=== PATIENT | male | born 1940 | race Caucasian/White ===

== ENCOUNTER 2019-12-08 07:10 | Outpatient (CLI) | payer MEDICARE, SELFPAY ==
[2019-12-08 07:48] LABS: Alanine Aminotransferase 22 U/L (4-50); Albumin Level 4.2 g/dL (3.5-5.1); Alkaline Phosphatase 77 U/L (38-126); Anion Gap 5 mmol/L (8-16); Aspartate Amino Transferase 25 U/L (17-59); Bilirubin,Total 0.7 mg/dL (0.2-1.3); Blood Urea Nitrogen 21 mg/dL (9-20); Calcium 8.7 mg/dL (8.4-10.2); Carbon Dioxide 30 mmol/L (22-30); Chloride 104 mmol/L (98-107); Estimated Glomerular Filt Rate > 60; Glucose 100 mg/dL (75-110); Potassium 3.4 mmol/L (3.4-5.0); Sodium 139 mmol/L (137-145)
== END 2019-12-08 07:11 | disposition home or self-care (01) ==
PROVIDERS: PCP Emergency Medicine; Visit Provider Emergency Medicine
DX: E78.5 Hyperlipidemia, unspecified (principal)
CPT/HCPCS: 36415; 80053

== ENCOUNTER 2020-04-19 07:41 | Outpatient (CLI) | payer MEDICARE, SELFPAY ==
[2020-04-19 09:10] LABS: Alanine Aminotransferase 17 U/L (4-50); Albumin Level 3.9 g/dL (3.5-5.1); Alkaline Phosphatase 78 U/L (38-126); Anion Gap 4 mmol/L (8-16); Aspartate Amino Transferase 25 U/L (17-59); Bilirubin,Total 0.7 mg/dL (0.2-1.3); Blood Urea Nitrogen 23 mg/dL (9-20); Calcium 8.9 mg/dL (8.4-10.2); Carbon Dioxide 35 mmol/L (22-30); Chloride 102 mmol/L (98-107); Estimated Glomerular Filt Rate 58; Glucose 99 mg/dL (75-110); Potassium 3.4 mmol/L (3.4-5.0); Sodium 141 mmol/L (137-145)
== END 2020-04-19 07:42 | disposition home or self-care (01) ==
PROVIDERS: PCP Emergency Medicine; Visit Provider Emergency Medicine
DX: E78.5 Hyperlipidemia, unspecified (principal)
CPT/HCPCS: 36415; 80053

== ENCOUNTER 2020-08-25 07:25 | Outpatient (CLI) | payer MEDICARE, SELFPAY ==
[2020-08-25 08:18] LABS: Alanine Aminotransferase 19 U/L (4-50); Alkaline Phosphatase 75 U/L (38-126); Anion Gap 5 mmol/L (8-16); Aspartate Amino Transferase 25 U/L (17-59); Bilirubin,Total 0.7 mg/dL (0.2-1.3); Blood Urea Nitrogen 20 mg/dL (9-20); Calcium 8.5 mg/dL (8.4-10.2); Carbon Dioxide 32 mmol/L (22-30); Chloride 105 mmol/L (98-107); Estimated Glomerular Filt Rate 53; Glucose 98 mg/dL (75-110); Potassium 3.4 mmol/L (3.4-5.0); Sodium 142 mmol/L (137-145)
== END 2020-08-25 07:26 | disposition home or self-care (01) ==
PROVIDERS: PCP Emergency Medicine; Visit Provider Emergency Medicine
DX: E78.5 Hyperlipidemia, unspecified (principal)
CPT/HCPCS: 36415; 80053

== ENCOUNTER 2020-12-31 07:15 | Outpatient (CLI) | payer MEDICARE, SELFPAY ==
[2020-12-31 07:56] LABS: Alanine Aminotransferase 22 U/L (4-50); Albumin Level 4.3 g/dL (3.5-5.1); Alkaline Phosphatase 80 U/L (38-126); Anion Gap 7 mmol/L (8-16); Aspartate Amino Transferase 26 U/L (17-59); Bilirubin,Total 0.7 mg/dL (0.2-1.3); Blood Urea Nitrogen 24 mg/dL (9-20); Carbon Dioxide 31 mmol/L (22-30); Chloride 103 mmol/L (98-107); Estimated Glomerular Filt Rate 58; Glucose 102 mg/dL (65-110); Potassium 3.6 mmol/L (3.4-5.0); Sodium 141 mmol/L (137-145)
== END 2020-12-31 07:16 | disposition home or self-care (01) ==
LOC: ANHLAB 07:18
PROVIDERS: PCP Emergency Medicine; Visit Provider Emergency Medicine
DX: I10 Essential (primary) hypertension (principal)
CPT/HCPCS: 36415; 80053

== ENCOUNTER 2021-05-04 07:50 | Outpatient (CLI) | payer MEDICARE, SELFPAY ==
[2021-05-04 12:56] LABS: Alanine Aminotransferase 28 U/L (4-50); Albumin Level 4.3 g/dL (3.5-5.1); Alkaline Phosphatase 90 U/L (38-126); Anion Gap 8 mmol/L (8-16); Aspartate Amino Transferase 29 U/L (17-59); Bilirubin,Total 0.6 mg/dL (0.2-1.3); Blood Urea Nitrogen 24 mg/dL (9-20); Calcium 9.2 mg/dL (8.4-10.2); Carbon Dioxide 30 mmol/L (22-30); Chloride 102 mmol/L (98-107); Estimated Glomerular Filt Rate 49; Glucose 127 mg/dL (65-110); Sodium 140 mmol/L (137-145)
== END 2021-05-04 07:51 | disposition home or self-care (01) ==
PROVIDERS: PCP Emergency Medicine; Visit Provider Emergency Medicine
DX: I10 Essential (primary) hypertension (principal)
CPT/HCPCS: 36415; 80053

== ENCOUNTER 2021-09-07 07:07 | Outpatient (CLI) | payer MEDICARE, SELFPAY ==
[2021-09-07 08:34] LABS: Alanine Aminotransferase 18 U/L (6-50); Albumin Level 3.9 g/dL (3.5-5.1); Alkaline Phosphatase 82 U/L (38-126); Anion Gap 6 mmol/L (8-16); Aspartate Amino Transferase 26 U/L (17-59); Bilirubin,Total 0.8 mg/dL (0.2-1.3); Blood Urea Nitrogen 17 mg/dL (9-20); Calcium 8.6 mg/dL (8.4-10.2); Carbon Dioxide 30 mmol/L (22-30); Chloride 103 mmol/L (98-107); Estimated Glomerular Filt Rate > 60; Glucose 96 mg/dL (65-110); Potassium 3.2 mmol/L (3.4-5.0); Sodium 139 mmol/L (137-145)
== END 2021-09-07 07:08 | disposition home or self-care (01) ==
PROVIDERS: PCP Emergency Medicine; Visit Provider Emergency Medicine
DX: I10 Essential (primary) hypertension (principal)
CPT/HCPCS: 36415; 80053

== ENCOUNTER 2022-01-11 07:28 | Outpatient (CLI) | payer MEDICARE, SELFPAY ==
[2022-01-11 10:28] LABS: Alanine Aminotransferase 22 U/L (6-50); Alkaline Phosphatase 82 U/L (38-126); Anion Gap 9 mmol/L (8-16); Aspartate Amino Transferase 26 U/L (17-59); Bilirubin,Total 0.7 mg/dL (0.2-1.3); Blood Urea Nitrogen 17 mg/dL (9-20); Calcium 8.8 mg/dL (8.4-10.2); Carbon Dioxide 30 mmol/L (22-30); Chloride 102 mmol/L (98-107); Estimated Glomerular Filt Rate 58; Glucose 99 mg/dL (65-110); Potassium 3.3 mmol/L (3.4-5.0); Sodium 141 mmol/L (137-145)
== END 2022-01-11 07:29 | disposition home or self-care (01) ==
LOC: ANHLAB 07:29
PROVIDERS: PCP Emergency Medicine; Visit Provider Emergency Medicine
DX: I10 Essential (primary) hypertension (principal)
CPT/HCPCS: 36415; 80053

== ENCOUNTER 2022-05-17 07:53 | Outpatient (CLI) | payer MEDICARE, SELFPAY ==
[2022-05-17 09:35] LABS: Alanine Aminotransferase 22 U/L (6-50); Alkaline Phosphatase 76 U/L (38-126); Anion Gap 5 mmol/L (8-16); Aspartate Amino Transferase 24 U/L (17-59); Bilirubin,Total 0.8 mg/dL (0.2-1.3); Blood Urea Nitrogen 17 mg/dL (9-20); Calcium 8.7 mg/dL (8.4-10.2); Carbon Dioxide 32 mmol/L (22-30); Chloride 103 mmol/L (98-107); Estimated Glomerular Filt Rate > 60; Glucose 91 mg/dL (65-110); Potassium 3.3 mmol/L (3.4-5.0); Sodium 140 mmol/L (137-145)
== END 2022-05-17 07:54 | disposition home or self-care (01) ==
PROVIDERS: PCP Emergency Medicine; Visit Provider Emergency Medicine
DX: I10 Essential (primary) hypertension (principal)
CPT/HCPCS: 36415; 80053

== ENCOUNTER 2022-09-20 07:12 | Outpatient (CLI) | payer MEDICARE, SELFPAY ==
[2022-09-20 08:57] LABS: Alanine Aminotransferase 23 U/L (6-50); Albumin Level 3.9 g/dL (3.5-5.1); Alkaline Phosphatase 73 U/L (38-126); Anion Gap 3 mmol/L (8-16); Aspartate Amino Transferase 27 U/L (17-59); Bilirubin,Total 0.8 mg/dL (0.2-1.3); Blood Urea Nitrogen 16 mg/dL (9-20); Calcium 9.2 mg/dL (8.4-10.2); Carbon Dioxide 35 mmol/L (22-30); Chloride 102 mmol/L (98-107); Estimated Glomerular Filt Rate 58; Glucose 103 mg/dL (65-110); Potassium 3.4 mmol/L (3.4-5.0); Sodium 140 mmol/L (137-145)
== END 2022-09-20 07:13 | disposition home or self-care (01) ==
PROVIDERS: PCP Emergency Medicine; Visit Provider Emergency Medicine
DX: I10 Essential (primary) hypertension (principal)
CPT/HCPCS: 36415; 80053

== ENCOUNTER 2023-01-04 10:10 | Outpatient (CLI) | payer MEDICARE, SELFPAY ==
--- NOTE | 2023-01-04 10:22 | EST_ITS ---
Patient Info Name: Marshall Paulino Age: 82 years : 1940 Gender: Male Ht: 68 in Wt: 185 lbs BSA: 2.03 m2 HR: 116 bpm BP: 151 / 76 mmHg Heart Rhythm: Sinus Rhythm Exam Date: 01/04/2023 10:45 AM Exam Location: [facility] Stress Patient Status: Outpatient Admit Date: 01/04/2023 Staff Ordering Physician: Sekou Liao MD Attending Provider: Sekou Liao MD Exercise Technologist: Petty Aguilar CT Exercise Physician: Dudley Knott DO Exam Type: CA stress test treadmill Study Info An exercise stress test was performed. Summary 1. 1. Negative Frank exercise stress test for ischemic ST changes by ECG criteria. 2. 2. Reduced functional capacity, achieving 6 METs of workload. 3. 3. Baseline hypertension. 4. 4. Appropriate HR response to exercise. 5. 5. Appropriate HR recovery at 1 minute post exercise. 6. 6. No imaging with stress testing. 7. 7. Patient informed of the above results. Protocol: Frank Stress ECG Details Stage: REST Duration (min): 1 min : 29 sec Speed (mph): 0.0 Grade (%): 0 HR (bpm): 65 SBP (mmHg): 151 DBP (mmHg): 76 METS: --- Stage: REST Duration (min): 7 min : 42 sec Speed (mph): 0.0 Grade (%): 0 HR (bpm): 73 SBP (mmHg): 151 DBP (mmHg): 76 METS: --- Stage: STAGE 1 Duration (min): 1 min : 0 sec Speed (mph): 1.7 Grade (%): 10 HR (bpm): 86 SBP (mmHg): 151 DBP (mmHg): 76 METS: --- Stage: STAGE 1 Duration (min): 2 min : 0 sec Speed (mph): 1.7 Grade (%): 10 HR (bpm): 95 SBP (mmHg): 151 DBP (mmHg): 76 METS: --- Stage: STAGE 1 Duration (min): 3 min : 0 sec Speed (mph): 1.7 Grade (%): 10 HR (bpm): 105 SBP (mmHg): 198 DBP (mmHg): 64 METS: --- Stage: STAGE 2 Duration (min): 0 min : 59 sec Speed (mph): 2.5 Grade (%): 12 HR (bpm): 117 SBP (mmHg): 198 DBP (mmHg): 64 METS: --- Stage: RECOVERY Duration (min): 1 min : 0 sec Speed (mph): 0.0 Grade (%): 0 HR (bpm): 120 SBP (mmHg): 198 DBP (mmHg): 64 METS: --- Stage: RECOVERY Duration (min): 2 min : 0 sec Speed (mph): 0.0 Grade (%): 0 HR (bpm): 114 SBP (mmHg): 198 DBP (mmHg): 64 METS: --- Stage: RECOVERY Duration (min): 3 min : 0 sec Speed (mph): 0.0 Grade (%): 0 HR (bpm): 108 SBP (mmHg): 205 DBP (mmHg): 70 METS: --- Stage: RECOVERY Duration (min): 3 min : 2 sec Speed (mph): 0.0 Grade (%): 0 HR (bpm): 115 SBP (mmHg): 205 DBP (mmHg): 70 METS: --- Rest HR: 73 bpm Peak HR: 138 bpm Rest Sys BP: 151 mmHg Peak Sys BP: 205 mmHg Max Pred HR: 137 bpm % Max Pred HR: 101 % Target HR: 116 bpm Max RPP: 28,290 bpm*mmHg Melvin Score: 0 Termination Reason: Reached target heart rate or workload Cardiac Symptoms: Shortness of breath Max ST Seg Deviation: -0.80 mm Total Time: 3 min : 59 sec Rest Jackson BP: 76 mmHg Peak Jackson BP: 70 mmHg Angina Score: None Total METS: 6.2 Resting ECG Sinus rhythm. Stress ECG No significant ST changes. Arrhythmias None. Frequent PAC's and couplets with exercise.
== END 2023-01-04 10:11 | disposition home or self-care (01) ==
PROVIDERS: PCP Emergency Medicine; Visit Provider Emergency Medicine
DX: R07.9 Chest pain, unspecified (principal)
CPT/HCPCS: 93017

== ENCOUNTER 2023-01-24 08:19 | Outpatient (CLI) | payer MEDICARE, SELFPAY ==
[2023-01-24 09:20] LABS: Alanine Aminotransferase 22 U/L (6-50); Albumin Level 4.1 g/dL (3.5-5.1); Alkaline Phosphatase 79 U/L (38-126); Anion Gap 4 mmol/L (8-16); Aspartate Amino Transferase 27 U/L (17-59); Bilirubin,Total 0.9 mg/dL (0.2-1.3); Blood Urea Nitrogen 17 mg/dL (9-20); Calcium 8.6 mg/dL (8.4-10.2); Carbon Dioxide 31 mmol/L (22-30); Chloride 103 mmol/L (98-107); Estimated Glomerular Filt Rate > 60; Glucose 95 mg/dL (65-110); Potassium 3.6 mmol/L (3.4-5.0); Sodium 138 mmol/L (137-145)
[2023-01-27 21:40] LABS: Vitamin D 1,25 (OH)2 Total 38 pg/mL (18-72); Vitamin D2 1,25 (OH)2 <8 pg/mL; Vitamin D3 1,25 (OH)2 38 pg/mL
== END 2023-01-24 08:20 | disposition home or self-care (01) ==
LOC: ANHLAB 08:21
PROVIDERS: PCP Emergency Medicine; Visit Provider Emergency Medicine
DX: E78.5 Hyperlipidemia, unspecified (principal); E55.9 Vitamin D deficiency, unspecified
CPT/HCPCS: 36415; 80053; 82652

== ENCOUNTER 2023-05-08 12:50 | Outpatient (CLI) | payer MEDICARE, SELFPAY ==
[2023-05-08 13:55] LABS: SARS-CoV-2 RNA PCR Negative (Negative)
== END 2023-05-08 12:51 | disposition home or self-care (01) ==
PROVIDERS: PCP Emergency Medicine; Visit Provider Emergency Medicine
DX: R05.3 Chronic cough (principal); Z20.822 Contact with and (suspected) exposure to COVID-19
CPT/HCPCS: 87635

== ENCOUNTER 2023-05-31 08:17 | Outpatient (CLI) | payer MEDICARE, SELFPAY ==
[2023-05-31 09:37] LABS: Alanine Aminotransferase 21 U/L (6-50); Albumin Level 3.8 g/dL (3.5-5.1); Alkaline Phosphatase 77 U/L (38-126); Anion Gap 4 mmol/L (8-16); Aspartate Amino Transferase 26 U/L (17-59); Bilirubin,Total 0.8 mg/dL (0.2-1.3); Blood Urea Nitrogen 19 mg/dL (9-20); Calcium 9.3 mg/dL (8.4-10.2); Carbon Dioxide 34 mmol/L (22-30); Chloride 104 mmol/L (98-107); Estimated Glomerular Filt Rate 58; Glucose 95 mg/dL (65-110); Potassium 3.4 mmol/L (3.4-5.0); Sodium 142 mmol/L (137-145)
[2023-05-31 10:02] LABS: Vitamin D 25 Hydroxy 31.4 ng/mL
== END 2023-05-31 08:18 | disposition home or self-care (01) ==
PROVIDERS: PCP Emergency Medicine; Visit Provider Emergency Medicine
DX: E55.9 Vitamin D deficiency, unspecified (principal); I10 Essential (primary) hypertension
CPT/HCPCS: 36415; 80053; 82306

== ENCOUNTER 2023-10-03 08:27 | Outpatient (CLI) | payer MEDICARE, SELFPAY ==
[2023-10-03 09:43] LABS: Alanine Aminotransferase 19 U/L (6-50); Alkaline Phosphatase 77 U/L (38-126); Anion Gap 3 mmol/L (4-12); Aspartate Amino Transferase 28 U/L (17-59); Blood Urea Nitrogen 19 mg/dL (9-20); Carbon Dioxide 31 mmol/L (22-30); Chloride 105 mmol/L (98-107); Estimated Glomerular Filt Rate 58; Glucose 100 mg/dL (65-110); Potassium 3.5 mmol/L (3.4-5.0); Sodium 139 mmol/L (137-145)
[2023-10-03 13:25] LABS: Vitamin D 25 Hydroxy 33.6 ng/mL
== END 2023-10-03 08:28 | disposition home or self-care (01) ==
LOC: ANHLAB 08:29
PROVIDERS: PCP Emergency Medicine; Visit Provider Emergency Medicine
DX: E55.9 Vitamin D deficiency, unspecified (principal); E78.5 Hyperlipidemia, unspecified
CPT/HCPCS: 36415; 80053; 82306

== ENCOUNTER 2024-02-06 08:41 | Outpatient (CLI) | payer MEDICARE, SELFPAY ==
[2024-02-06 09:13] LABS: Alanine Aminotransferase 19 U/L (6-50); Alkaline Phosphatase 79 U/L (38-126); Anion Gap 6 mmol/L (4-12); Aspartate Amino Transferase 24 U/L (17-59); Bilirubin,Total 1.1 mg/dL (0.2-1.3); Blood Urea Nitrogen 15 mg/dL (9-20); Calcium 8.8 mg/dL (8.4-10.2); Carbon Dioxide 33 mmol/L (22-30); Chloride 101 mmol/L (98-107); Estimated Glomerular Filt Rate 53; Glucose 100 mg/dL (65-110); Potassium 3.5 mmol/L (3.4-5.0); Sodium 140 mmol/L (137-145)
[2024-02-06 09:50] LABS: Vitamin D 25 Hydroxy 39.3 ng/mL
== END 2024-02-06 08:42 | disposition home or self-care (01) ==
LOC: ANHLAB 08:42
PROVIDERS: PCP Emergency Medicine; Visit Provider Emergency Medicine
DX: E55.9 Vitamin D deficiency, unspecified (principal); I10 Essential (primary) hypertension
CPT/HCPCS: 36415; 80053; 82306

== ENCOUNTER 2024-06-11 08:44 | Outpatient (CLI) | payer MEDICARE, SELFPAY ==
--- OUTSIDE RECORDS SUMMARY | 2024-06-11 08:53 | XMS_ITS | Clinical Summary ---
Author Organization [facility] Address [facility] [place] [address] Care Team Providers Care Cuffing Machine Operator Name Role Phone Sekou Liao MD Primary Care Provider [phone] Social History Tobacco Use Types Packs/Day Years Used Date Smoking Tobacco: Never Assessed Sex and Gender Information Value Date Recorded Sex Assigned at Not on file Legal Sex Male 4:59 PM CDT Gender Identity Not on file Sexual Orientation Not on file Plan of Treatment Health Maintenance Due Date Last Done Comments DTaP, Tdap and Td Vaccines ( 1 - Tdap) 1959 Zoster Vaccines (1 of 2) 1989 Pneumococcal Vaccine: 65+ Ye ars (1 of 1 - PCV) 2004 RSV Immunization or 60+ Years (1 - 1-dose 75+ series) 2014 COVID-19 Vaccine ( - 2023-2 5 season) 2023 Influenza Adult (#1) 2024 Meningococcal B Vaccine Aged Out No l onger eligible based on patient's age to complete this topic Meningococcal Vaccine Aged Out No jesi kiran eligible based on patient's age to complete this topic RSV Immunizations Under 20 Months Aged Out No longer eligible based on patient's age to complete this topic Care Teams Cuffing Machine Operator Relationship Specialty Start Date End Date Sekou Liao MD [address] [place], [place] [id number] PCP - General 02/15/15
--- OUTSIDE RECORDS SUMMARY | 2024-06-11 08:53 | XMS_ITS | Continuity of Care Document ---
Author Organization Ophthalmology [facility] Address [address] [facility] [address] [place] [address] Phone Care Team Providers Care Orthopedic Specialist Name Role Phone Jairo Casey MD Unavailable Unavailable Procedures Procedure Date AFTER CATARACT LASER SURGERY AFTER CATARACT LASER SURGERY EYE EXAM & TREATMENT CATARACT SURG W/IOL, 1 STAGE CATARACT SURG W/IOL, 1 STAGE OFFICE/OUTPATIENT VISIT, [facility] OPHTHALMIC BIOMETRY OPHTHALMIC BIOMETRY Advance Directives Directive Yes / No Effective Date File Name No Information Encounters Encounter Description Practice Location Reason(s) For Visit Diagnoses Date Provider Providers Copied on Encounter Ophthalmology [facility], [address] [place] [address], [address] [place] [address], tel:[phone] [place] No Information 8 Carmela Gill. [address] [place] [address], [address], [place], [address], [place]. tel:[phone] Referring Provider: Jairo Lucio, [address] [place] [address] [address], [place], [address]. tel:[phone] [facility], [address] [place] [address], [id number], tel:[phone] [facility] [place] No Information 8 Carmela Gill. [address] [facility], [address], [place], [address], [place]. tel:[phone] Referring Provider: Jairo Lucio, [address] [place] [address] [address], [place], [address]. tel:[phone] [facility], [address], [place], [place], [id number], [place] tel:[phone] [facility] [place] No Information 8 Carmela Gill. [address], [address], [place], [address], [place]. tel:[phone] Referring Provider: Jairo Lcuio, [address], [place], [address]. tel:[phone] [facility], [address], [place], [place], [id number], [place] tel:[phone] [facility] No Information 5 Carmela Gill. [address], [address], [place], [address], [place]. tel:[phone] Referring Provider: Jairo Lucio, [address], [place], [address]. tel:[phone] [facility], [address], [place], [place], [id number], [place] tel:[phone] [facility] No Information 5 Carmela Gill. [address], [address], [place], [address], [place]. tel:[phone] Referring Provider: Jairo Lucio, [address], [place], [address]. tel:[phone] OFFICE/OUTPA TIENT VISIT, [facility], [address], [place], [place], [address], [place] tel:[phone] [facility] [place] No Information 5 Carmela Gill. [address], [address], [place], [address], [place]. tel:[phone] Referring Provider: Jairo Lucio, [address], [place], [address]. tel:[phone] Family History Family Member Type Diagnosis Age At Onset No Information Payers Payer name Insurance type Covered republican ID Authoriza tion(s) Medicare Complete Advantage [facility] [id number] Social History Type Description Quantity Date Captured Comments Sex Male Smoking Status No Information Chief Complaint And Reason For Visit No Information Plan Of Treatment Date Type Action Status No Information History Of Present Illness Encounter Date Complaint History Of Prese nt Illness No Information Instructions Date Instruction Additional Infor mation No Information Assessments Type Assessment Date No Information
--- OUTSIDE RECORDS SUMMARY | 2024-06-11 08:53 | XMS_ITS | Clinical Summary ---
Author Organization [address] Address [address] [place] [address] Care Team Providers Care Edge Trimmer Name Role Phone Sekou Liao MD Primary Care Provide r Allergies No known active allergies Medications lisinopriL (PRINIVIL,ZESTRI L) 20 mg tablet Take 1 tablet (20 mg total) by mouth daily 11/23/2022 Active lhxazgvz32-iiqf- Lmfolate-algal 27 mg iron-1.13 mg-581.92 mg capsule Take by mouth Active calcium-vits B8-D-A7-minerals 166.75 mg- 166.75 unit capsule Take by mouth Active aspirin 81 mg enteric coated tablet Take 1 tablet (81 mg total) by mouth daily Active vit A/C/E ac/ZnOx/cupric oxide (EYE VITAMIN AND MINERALS ORAL) Take by mouth Active hydroCHLOROthiaz enrique (HYDRODIURIL) 25 mg tablet Take 1 tablet (25 mg total) by mouth daily Active Active Problems Problem Noted Date Diagnosed Date LVH (left ventricular hypertrophy) 05/28/2023 Primary hypertension 02/12/2023 Other chest pain 02/12/2023 Abnormal ECG 02/12/2023 Encounters Date Type Department Care Team Description 05/29/2024 9:30 AM MANAGER FRENCH Office Visit [facility] Cardiology [address] [place] [address] Caleb Esquivel MD Primary hypertension (Primary Dx); LVH (left ventricular hypertrophy) from Last 3 Months Medical History Medical History Date Comments Chest pain Hypertension Hyperlipidemia Renal cyst Family History Medical History Relation Name Comments Heart attack Father Heart disease Father Alzheimer's disease Mother Relation Name Status Comments Father Mother Social History Tobacco Use Types Packs/Day Years Used Date Smoking Tobacco: Never Tobacco Cessation:Counseling Given: Not Answered Sex and Gender Information Value Date Recorded Sex Assigned at Not on file Legal Sex Male 12:38 AM MANAGER FRENCH Gender Identity Not on file Sexual Orientation Not on file Obstetrics History Last Filed Vital Signs Vital Sign Reading Time Taken Comments Blood Pressure 128/66 05/29/2024 9:43 AM MANAGER FRENCH Pulse 72 05/29/2024 9:43 AM MANAGER FRENCH Temperature - - Respiratory Rate - - Oxygen Saturation 94% 05/29/2024 9:43 AM MANAGER FRENCH Inhaled Oxygen Concentration - - Weight 87.5 kg (193 lb) 05/29/2024 9:43 AM MANAGER FRENCH Height 172.7 cm (5' 8 ) 05/29/2024 9:43 AM MANAGER FRENCH Body Mass Index 29.35 05/29/2024 9:43 AM MANAGER FRENCH Plan of Treatment Health Maintenance Due Date Last Done Comments Depression Screening 1940 Fall Risk Assessment 1940 DTaP/Tdap/Td Vaccine (1 - Tdap) 1950 Hepatitis B Screening 1957 Pneumococcal vaccine 65+ (1 of 1 - PCV) 2004 Well Visit 65+ 2004 Zoster Vaccine (2 of 3) 03/24/2013 01/27/2013 Covid-19 Vaccine (6 2023-2 5 season) 2023 02/07/2023, 02/20/2022, 02/07/2021, Additional history exists Influenza Vaccine (#1) 2023 , 02/04/2022, 12/29/2020, Additional history exists Insurance [employer] Care Teams Edge Trimmer Relationship Specialty Start Date End Date Sekou Liao MD [address] [place] [address] PCP - General Emergency Medicine 12/24/22
--- OUTSIDE RECORDS SUMMARY | 2024-06-11 08:53 | XMS_ITS | Referral Summary ---
Author Organization [address] Address [address] [place] [address] Care Team Providers Care Driver License Reviewing Officer Name Role Phone Sekou Liao MD Primary Care Provide r Encounters Date Type Department Care Team Description 05/29/2024 9:30 AM LEGAL SUPPORT MANAGER Office Visit [facility] Medical Group Cardiology [address] [place] [address] Caleb Esquivel MD Primary hypertension (Primary Dx); LVH (left ventricular hypertrophy) from Last 3 Months Allergies No known active allergies Medications lisinopriL (PRINIVIL,ZESTRI L) 20 mg tablet Take 1 tablet (20 mg total) by mouth daily 11/23/2022 Active tahisihp29-xour- Lmfolate-algal 27 mg iron-1.13 mg-581.92 mg capsule Take by mouth Active calcium-vits R6-T-J1-minerals 166.75 mg- 166.75 unit capsule Take by [...] Other chest pain 02/12/2023 Abnormal ECG 02/12/2023 Social History Tobacco Use Types Packs/Day Years Used Date Smoking Tobacco: Never Tobacco Cessation:Counseling Given: Not Answered Sex and Gender Information Value Date Recorded Sex Assigned at Not on file Legal Sex Male 12:38 AM LEGAL SUPPORT MANAGER Gender Identity Not on file Sexual Orientation Not on file Last Filed Vital Signs Vital Sign Reading Time Taken Comments Blood Pressure 128/66 05/29/2024 9:43 AM LEGAL SUPPORT MANAGER Pulse 72 05/29/2024 9:43 AM LEGAL SUPPORT MANAGER Temperature - - Respiratory Rate - - Oxygen Saturation 94% 05/29/2024 9:43 AM LEGAL SUPPORT MANAGER Inhaled Oxygen Concentration - - Weight 87.5 kg (193 lb) 05/29/2024 9:43 AM LEGAL SUPPORT MANAGER Height 172.7 cm (5' 8 ) 05/29/2024 9:43 AM LEGAL SUPPORT MANAGER Body Mass Index 29.35 05/29/2024 9:43 AM LEGAL SUPPORT MANAGER Plan of Treatment Not on file Insurance [employer] Care Teams Driver License Reviewing Officer Relationship Specialty Start Date End Date Sekou Liao MD [address] [place] [address] PCP - General Emergency Medicine 12/24/22
[2024-06-11 09:38] LABS: Alanine Aminotransferase 29 U/L (6-50); Alkaline Phosphatase 87 U/L (38-126); Anion Gap 8 mmol/L (4-12); Aspartate Amino Transferase 27 U/L (17-59); Bilirubin,Total 0.8 mg/dL (0.2-1.3); Blood Urea Nitrogen 18 mg/dL (9-20); Carbon Dioxide 30 mmol/L (22-30); Chloride 102 mmol/L (98-107); Estimated Glomerular Filt Rate > 60; Glucose 97 mg/dL (65-110); Potassium 3.5 mmol/L (3.4-5.0); Sodium 140 mmol/L (137-145)
[2024-06-11 10:08] LABS: Vitamin D 25 Hydroxy 28.2 ng/mL
== END 2024-06-11 08:45 | disposition home or self-care (01) ==
LOC: ANHLAB 08:45
PROVIDERS: PCP Emergency Medicine; Visit Provider Emergency Medicine
DX: E55.9 Vitamin D deficiency, unspecified (principal); I10 Essential (primary) hypertension
CPT/HCPCS: 36415; 80053; 82306

== ENCOUNTER 2024-08-28 13:58 | Outpatient (CLI) | payer MEDICARE, SELFPAY ==
[2024-08-28 15:23] LABS: Influenza A QL RT-PCR Negative (Negative); Influenza B QL RT-PCR Negative (Negative); RSV RNA, RT-PCR Negative (Negative); SARS-CoV-2 RNA PCR Negative (Negative)
--- OUTSIDE RECORDS SUMMARY | 2024-08-29 14:13 | XMS_ITS | Referral Summary ---
Author Organization [address] Address [address] [place] [address] Care Team Providers Care Ocean Export Agent Name Role Phone Sekou Liao MD Primary Care Provide r Allergies No known active allergies Medications lisinopriL (PRINIVIL,ZESTRI L) 20 mg tablet Take 1 tablet (20 mg total) by mouth daily 11/23/2022 Active ryfzzbmc42-xnnn- Lmfolate-algal 27 mg iron-1.13 mg-581.92 mg capsule Take by mouth Active calcium-vits B5-H-V4-minerals 166.75 mg- 166.75 unit capsule Take by [...] on file Legal Sex Male 12:38 AM RECORDER OF DEEDS Gender Identity Not on file Sexual Orientation Not on file Last Filed Vital Signs Vital Sign Reading Time Taken Comments Blood Pressure 128/66 05/29/2024 9:43 AM RECORDER OF DEEDS Pulse 72 05/29/2024 9:43 AM RECORDER OF DEEDS Temperature - - Respiratory Rate - - Oxygen Saturation 94% 05/29/2024 9:43 AM RECORDER OF DEEDS Inhaled Oxygen Concentration - - Weight 87.5 kg (193 lb) 05/29/2024 9:43 AM RECORDER OF DEEDS Height 172.7 cm (5' 8 ) 05/29/2024 9:43 AM RECORDER OF DEEDS Body Mass Index 29.35 05/29/2024 9:43 AM RECORDER OF DEEDS Plan of Treatment Not on file Insurance [facility] MEDICARE [facility] Address: [address] [address] Care Teams Ocean Export Agent Relationship Specialty Start Date End Date Sekou Liao MD [address] [place] [address] PCP - General Emergency Medicine 12/24/22
--- OUTSIDE RECORDS SUMMARY | 2024-08-29 14:13 | XMS_ITS | Clinical Summary ---
Author Organization [facility] Address [facility] [place] [address] Care Team Providers Care Guide Changer Name Role Phone Sekou Liao MD Primary Care Provider [phone] Social History Tobacco Use Types Packs/Day Years Used Date Smoking Tobacco: Never Assessed Sex and Gender Information Value Date Recorded Sex Assigned at Not on file Legal Sex Male 4:59 PM CDT Gender Identity Not on file Sexual Orientation Not on file Plan of Treatment Health Maintenance Due Date Last Done Comments DTaP, Tdap and Td Vaccines ( 1 - Tdap) 1959 Pneumococcal Vaccine: 50+ Ye ars (1 of 1 - PCV) 1989 Zoster Vaccines (1 of 2) 1989 RSV Immunization or 60+ Years (1 - 1-dose 75+ series) 2014 COVID-19 Vaccine ( - 2023-2 5 season) 2023 Meningococcal B Vaccine Aged Out No l onger eligible based on patient's age to complete this topic Meningococcal Vaccine Aged Out No jesi kiran eligible based on patient's age to complete this topic RSV Immunizations Under 20 Months Aged Out No longer eligible based on patient's age to complete this topic Care Teams Guide Changer Relationship Specialty Start Date End Date Sekou Liao MD [address] [place] [address] PCP - General 02/15/15
--- OUTSIDE RECORDS SUMMARY | 2024-08-29 14:13 | XMS_ITS | Clinical Summary ---
Author Organization [address] Address [address] [place] [address] Care Team Providers Care Chef Assistant Name Role Phone Sekou Liao MD Primary Care Provide r Allergies No known active allergies Medications lisinopriL (PRINIVIL,ZESTRI L) 20 mg tablet Take 1 tablet (20 mg total) by mouth daily 11/23/2022 Active rsjnyjcc85-woah- Lmfolate-algal 27 mg iron-1.13 mg-581.92 mg capsule Take by mouth Active calcium-vits E1-D-X1-minerals 166.75 mg- 166.75 unit capsule Take by [...] Other chest pain 02/12/2023 Abnormal ECG 02/12/2023 Medical History Medical History Date Comments Chest [...] on file Legal Sex Male 12:38 AM SEX CRIMES DETECTIVE Gender Identity Not on file Sexual Orientation Not on file Obstetrics History Last Filed Vital Signs Vital Sign Reading Time Taken Comments Blood Pressure 128/66 05/29/2024 9:43 AM SEX CRIMES DETECTIVE Pulse 72 05/29/2024 9:43 AM SEX CRIMES DETECTIVE Temperature - - Respiratory Rate - - Oxygen Saturation 94% 05/29/2024 9:43 AM SEX CRIMES DETECTIVE Inhaled Oxygen Concentration - - Weight 87.5 kg (193 lb) 05/29/2024 9:43 AM SEX CRIMES DETECTIVE Height 172.7 cm (5' 8 ) 05/29/2024 9:43 AM SEX CRIMES DETECTIVE Body Mass Index 29.35 05/29/2024 9:43 AM SEX CRIMES DETECTIVE Plan of Treatment Health Maintenance Due Date Last Done Comments Depression Screening 1940 Fall Risk Assessment 1940 DTaP/Tdap/Td Vaccine (1 - Tdap) 1951 Hepatitis B Screening 1957 Pneumococcal vaccine 65+ (1 of 1 - PCV) 1989 Well Visit 65+ 2004 Zoster Vaccine (2 of 3) 03/24/2013 01/27/2013 Covid-19 Vaccine (6 - 2023-2 5 season) 2023 02/07/2023, 02/20/2022, 02/07/2021, Additional history exists Influenza Vaccine (#1) 2023 , 02/04/2022, 12/29/2020, Additional history exists Insurance [facility] MEDICARE [facility] MEDIC[facility] Address: [facility] [address] [place] [address] Care Teams Chef Assistant Relationship Specialty Start Date End Date Sekou Liao MD [address] [place] [address] PCP - General Emergency Medicine 12/24/22
--- OUTSIDE RECORDS SUMMARY | 2024-08-29 14:13 | XMS_ITS | Continuity of Care Document ---
Author Organization Ophthalmology [facility] Address [id number] [place] [address] [address] [place] [address] Phone Care Team Providers Care Solidworks Drafter Name Role Phone Jairo Casey MD Unavailable Unavailable Procedures Procedure Date AFTER CATARACT LASER SURGERY AFTER CATARACT LASER SURGERY EYE EXAM & TREATMENT CATARACT SURG W/IOL, 1 STAGE CATARACT SURG W/IOL, 1 STAGE OFFICE/OUTPATIENT VISIT, [facility] OPHTHALMIC BIOMETRY OPHTHALMIC BIOMETRY Advance Directives Directive Yes / No Effective Date File Name No Information Encounters Encounter Description Practice Location Reason(s) For Visit Diagnoses Date Provider Providers Copied on Encounter Ophthalmology [facility], [address] [place] [address], [place], [place], [id number], tel:[phone] [place] No Information 8 Carmelamain Gill. [address] [facility], [address], [place], [place], [address], [place]. tel:[phone] Referring Provider: Jairo Lucio, [address] [place] [address] [address], [place], [address]. tel:[phone] Ophthalmology [facility], [address] [place] [address] [address], [place], [place], [id number], tel:[phone] [facility] [place] No Information 8 Carmelamain Gill. [address] [facility], [address], [place], [place], [address], [place]. tel:[phone] Referring Provider: Jairo Lucio, [address] [place] [address] [address], [place], [address]. tel:[phone] [facility], [address] [facility] [address], [place], [place], [address], [place] tel:[phone] Oph Consult [facility] No Information 8 Carmela Gill. [address] [facility], [address], [place], [place], [address], [place]. tel:[phone] Referring Provider: Jairo Lucio, [address] [facility] [address], [place], [address]. tel:[phone] [facility], [address] [place], [place] [address] [address], [place], [place], [address], [place] tel:[phone] [facility] No Information 5 Carmela Gill. [address] [facility], [address], [place], [place], [address], [place]. tel:[phone] Referring Provider: Jairo Lucio, [address] [place] [address] [address], [place], [address]. tel:[phone] [facility], [address] [facility] [address], [place], [place], [address], [place] tel:[phone] 1169 [facility] No Information 5 Carmela Gill. [address] [facility], [address], [place], [place], [address], [place]. tel:[phone] Referring Provider: Jairo Lucio, [address] [place] [address] [address], [place], [address]. tel:[phone] OFFICE/OUTPA TIENT VISIT, [facility], [address] [facility] [address], [place], [place], [address], [place] tel:[phone] Oph Consult [facility] No Information 5 Carmela Gill. [address] [facility], [address], [place], [place], [address], [place]. tel:[phone] Referring Provider: Jairo Lucio [address] [facility] [address], [place], [address]. tel:[phone] Family History Family Member Type Diagnosis Age At Onset No Information Payers Payer name Insurance type Covered green party ID Authoriza tion(s) Medicare Complete Advantage [facility] [id number] Social History Type Description Quantity Date Captured Comments Sex Male Smoking Status No Information Chief Complaint And Reason For Visit No Information Reason For Referral Reason For Referral No Information History Of Present Illness Encounter Date Complaint History Of Prese nt Illness No Information Functional Status Date Functional Assessmen t No Information Instructions Date Instruction Additional Infor mation No Information Assessments Type Assessment Date No Information Patient Care Teams Name Effective Dates (start - stop) Status Members No Information
== END 2024-08-28 13:59 | disposition home or self-care (01) ==
LOC: ANHLAB 13:59
PROVIDERS: PCP Emergency Medicine; Visit Provider Emergency Medicine
DX: R05.3 Chronic cough (principal)
CPT/HCPCS: 87637

== ENCOUNTER 2024-10-07 08:38 | Outpatient (CLI) | payer MEDICARE, SELFPAY ==
--- OUTSIDE RECORDS SUMMARY | 2024-10-07 08:58 | XMS_ITS | Clinical Summary ---
Author Organization [address] Address [address] [place] [id number] Care Team Providers Care Bridge Design Engineer Name Role Phone Sekou Liao MD Primary Care Provide r Allergies No known active allergies Medications lisinopriL (PRINIVIL,ZESTRI L) 20 mg tablet Take 1 tablet (20 mg total) by mouth daily 11/23/2022 Active eyqelotp64-untk- Lmfolate-algal 27 mg iron-1.13 mg-581.92 mg capsule Take by mouth Active calcium-vits Q3-G-W3-minerals 166.75 mg- 166.75 unit capsule Take by [...] on file Legal Sex Male 12:38 AM RESHIPPING CLERK Gender Identity Not on file Sexual Orientation Not on file Obstetrics History Last Filed Vital Signs Vital Sign Reading Time Taken Comments Blood Pressure 128/66 05/29/2024 9:43 AM RESHIPPING CLERK Pulse 72 05/29/2024 9:43 AM RESHIPPING CLERK Temperature - - Respiratory Rate - - Oxygen Saturation 94% 05/29/2024 9:43 AM RESHIPPING CLERK Inhaled Oxygen Concentration - - Weight 87.5 kg (193 lb) 05/29/2024 9:43 AM RESHIPPING CLERK Height 172.7 cm (5' 8) 05/29/2024 9:43 AM RESHIPPING CLERK Body Mass Index 29.35 05/29/2024 9:43 AM RESHIPPING CLERK Plan of Treatment Health Maintenance Due Date Last Done Comments Depression Screening 1940 Fall Risk Assessment 1940 DTaP/Tdap/Td Vaccine (1 - Tdap) 1950 Hepatitis B Screening 1957 Pneumococcal vaccine 65+ (1 of 1 - PCV) 1989 Well Visit 65+ 2004 Zoster Vaccine (2 of 3) 03/24/2013 01/27/2013 Covid-19 Vaccine (6 - 2023-2 5 season) 2023 02/07/2023, 02/20/2022, 02/07/2021, Additional history exists Influenza Vaccine (Season Ended) 2024 02/07/2023, 02/04/2022, 12/29/2020, Additional history exists Insurance [facility] MEDICARE [facility] MED[facility] Address: [facility] [address] [place] [address] Care Teams Bridge Design Engineer Relationship Specialty Start Date End Date Sekou Liao MD [address] [place] [address] PCP - General Emergency Medicine 12/24/22
--- OUTSIDE RECORDS SUMMARY | 2024-10-07 08:58 | XMS_ITS | Referral Summary ---
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 Gender Identity Not on file Sexual Orientation Not on file Last Filed Vital Signs Vital Sign Reading Time Taken Comments Blood Pressure 128/66 05/29/2024 9:43 AM CNC FIELD SERVICE ENGINEER Pulse 72 05/29/2024 9:43 AM CNC FIELD SERVICE ENGINEER Temperature - - Respiratory Rate - - Oxygen Saturation 94% 05/29/2024 9:43 AM CNC FIELD SERVICE ENGINEER Inhaled Oxygen Concentration - - Weight 87.5 kg (193 lb) 05/29/2024 9:43 AM CNC FIELD SERVICE ENGINEER Height 172.7 cm (5' 8) 05/29/2024 9:43 AM CNC FIELD SERVICE ENGINEER Body Mass Index 29.35 05/29/2024 9:43 AM CNC FIELD SERVICE ENGINEER Plan of Treatment Not on file Insurance [facility] MEDICARE [facility] MED[facility] Address: [address] [address] Care Teams Printer Floor Covering Assistant Relationship Specialty Start Date End Date Sekou Liao MD [address] [place] [address] PCP - General Emergency Medicine 12/24/22
--- OUTSIDE RECORDS SUMMARY | 2024-10-07 08:58 | XMS_ITS | Continuity of Care Document ---
Author Organization [facility] Address [id number] [place] [address] [address] [place] [address] Phone Care Team Providers Care Statistical Clerk Advertising Name Role Phone Jairo Casey MD Unavailable Unavailable Procedures Procedure Date AFTER CATARACT LASER SURGERY AFTER CATARACT LASER SURGERY EYE EXAM & TREATMENT CATARACT SURG W/IOL, 1 STAGE CATARACT SURG W/IOL, 1 STAGE OFFICE/OUTPATIENT VISIT, [facility] OPHTHALMIC BIOMETRY OPHTHALMIC BIOMETRY Advance Directives Directive Yes / No Effective Date File Name No Information Encounters Encounter Description Practice Location Reason(s) For Visit Diagnoses Date Provider Providers Copied on Encounter Ophthalmology [facility], [address] [place] [address], [place], [place], [id number], tel:[phone] [facility] [place] No Information 8 Carmelamain Gill. [address] [place] [address], [address], [place], [place], [id number], [place]. tel:[phone] Referring Provider: Jairo Lucio, [address] [place] [address] [address], [place], [address]. tel:[phone] [facility], [address] [place] [address] [address], [place], [place], [id number], tel:[phone] [facility] [place] No Information 8 Carmela Jairo. [address] [facility], [address], [place], [place], [id number], [place]. tel:[phone] Referring Provider: Jairo Lucio, [address] [place] [address] [address], [place], [address]. tel:[phone] [facility], [address] [facility] [address], [place], [place], [id number], [place] tel:[phone] [facility] No Information 8 Carmela Gill. [address] [facility], [address], [place], [place], [address], [place]. tel:[phone] Referring Provider: Jairo Lucio, [address] [facility] [address], [place], [address]. tel:[phone] [facility], [address] [place], [place] [address], [place], [place], [address], [place] tel:[phone] [facility] No Information 5 Carmela Gill. [address] [facility], [address], [place], [place], [address], [place]. tel:[phone] Referring Provider: Jairo Lucio, [address] [place] [address] [address], [place], [address]. tel:[phone] [facility], [address] [facility], [place], [place], [address], [place] tel:[phone] 4048 [facility] No Information 5 Carmela Gill. [address] [facility], [address], [place], [place], [address], [place]. tel:[phone] Referring Provider: Jairo Lucio, [address] [place] [address] [address], [place], [address]. tel:[phone] OFFICE/OUTPA TIENT VISIT, [facility], [address] [facility], [place], [place], [address], [place] tel:[phone] [facility] No Information 5 Carmela Gill. [address] [facility], [address], [place], [place], [address], [place]. tel:[phone] Referring Provider: Jairo Lucio [address] [facility] [address], [place], [address]. tel:[phone] Family History Family Member Type Diagnosis Age At Onset No Information Payers Payer name Insurance type Covered constitution party ID Authoriza tion(s) Medicare Complete Advantage [facility] [id number] Social History Type Description Quantity Date Captured [...]
[2024-10-07 09:38] LABS: Alanine Aminotransferase 22 U/L (6-50); Albumin Level 4.1 g/dL (3.5-5.1); Alkaline Phosphatase 79 U/L (38-126); Anion Gap 7 mmol/L (4-12); Aspartate Amino Transferase 31 U/L (17-59); Bilirubin,Total 0.8 mg/dL (0.2-1.3); Blood Urea Nitrogen 21 mg/dL (9-20); Calcium 9.3 mg/dL (8.4-10.2); Carbon Dioxide 29 mmol/L (22-30); Chloride 104 mmol/L (98-107); Estimated Glomerular Filt Rate 55; Glucose 101 mg/dL (65-110); Potassium 3.3 mmol/L (3.4-5.0); Sodium 140 mmol/L (137-145); Total Protein 7.1 g/dL (6.3-8.2)
[2024-10-07 10:08] LABS: Vitamin D 25 Hydroxy 28.6 ng/mL
== END 2024-10-07 08:39 | disposition home or self-care (01) ==
LOC: ANHLAB 08:38
PROVIDERS: PCP Emergency Medicine; Visit Provider Emergency Medicine
DX: E78.5 Hyperlipidemia, unspecified (principal); E55.9 Vitamin D deficiency, unspecified
CPT/HCPCS: 36415; 80053; 82306

== ENCOUNTER 2025-02-04 11:07 | Outpatient (CLI) | payer MEDICARE, SELFPAY ==
[2025-02-04 11:42] LABS: Hematocrit 40.3 % (42.0-52.0); Hemoglobin 14.0 g/dL (14.0-18.0); Immature Granulocyte Percent A 0.2 % (0-0.5); Lymphocytes Absolute Auto 1.53 K/mm3 (0.9-3.2); Mean Corpuscular HGB Conc 34.7 g/dl (32-36); Mean Corpuscular Hemoglobin 34.8 pg (26-34); Mean Corpuscular Volume 100.2 fl (80-100); Nucleated Red Blood Cells Absolute Auto 0.000 K/mm3 (0.0-0.012); Nucleated Red Blood Cells Perc 0.0 % (0.0-0.2); Platelet Count Result 223 k/mm3 (150-375); Red Blood Count 4.02 M/mm3 (4.6-6.20); White Blood Count 5.8 K/mm3 (4.5-10.0)
[2025-02-04 12:15] LABS: Alanine Aminotransferase 20 U/L (6-50); Albumin Level 4.2 g/dL (3.5-5.1); Alkaline Phosphatase 81 U/L (38-126); Anion Gap 6 mmol/L (4-12); Aspartate Amino Transferase 32 U/L (17-59); Bilirubin,Total 0.8 mg/dL (0.2-1.3); Blood Urea Nitrogen 18 mg/dL (9-20); Calcium 9.3 mg/dL (8.4-10.2); Carbon Dioxide 30 mmol/L (22-30); Chloride 103 mmol/L (98-107); Estimated Glomerular Filt Rate > 60; Glucose 86 mg/dL (65-110); Potassium 3.6 mmol/L (3.4-5.0); Sodium 139 mmol/L (137-145); Total Protein 7.6 g/dL (6.3-8.2)
== END 2025-02-04 11:08 | disposition home or self-care (01) ==
LOC: ANHLAB 11:08
PROVIDERS: PCP Emergency Medicine; Visit Provider Emergency Medicine
DX: E55.9 Vitamin D deficiency, unspecified (principal); I10 Essential (primary) hypertension; E78.5 Hyperlipidemia, unspecified
CPT/HCPCS: 36415; 80053; 82306; 85025